=== PATIENT | male | born 1985 ===

== ENCOUNTER 2018-07-06 10:45 | Outpatient (CLI) | payer OTHER ==
[~2018-07-06] VITALS: Ht 175.3 cm; Wt 77.1 kg
== END 2018-07-06 11:00 | disposition home or self-care (01) ==
LOC: OFIC 805 10:45
DX: K21.9 Gastro-esophageal reflux disease without esophagitis (principal); H90.42 Sensorineural hearing loss, unilateral, left ear, with unrestricted hearing on the contralateral side; J30.89 Other allergic rhinitis